=== PATIENT | male | born 1940 | race Caucasian/White ===

== ENCOUNTER 2020-07-06 16:35 | Outpatient (CLI) | payer MEDICARE, BC, OTHER, SELFPAY ==
[2020-07-06 16:49] LABS: Hemoglobin 7.7 g/dL (11.7-16.6); Mean Corpuscular HGB Conc 30.8 g/dL (30.0-36.0); Mean Corpuscular Hemoglobin 26.9 pg (28.0-34.0); Mean Corpuscular Volume 87.4 fL (80-94); Mean Platelet Volume 11.2 fL (7.4-10.4); Platelet Count 205 10^3/cmm (130-400); Red Blood Count 2.86 10^6/uL (4.1-5.3); Red Cell Distribution Width 19.4 % (12.1-15.1); White Blood Count 8.5 10^3/uL (4.0-10.0)
[2020-07-06 17:15] LABS: Alanine Aminotransferase 36 U/L (0-41); Albumin Level 3.1 g/dL (3.5-5.2); Alkaline Phosphatase 104 IU/L (40-130); Anion Gap 18.6 (5-19); Aspartate Amino Transferase 20 U/L (0-40); Carbon Dioxide 21 mmol/L (22-29); Chloride 99 mmol/L (98-107); Globulin 2.7 g/dL (1.3-4.6); Glucose 118 mg/dL (65-115); Lactate Dehydrogenase 319 U/L (135-225); Osmolality Calculated 277 mOsm/kg (285-295); Potassium 5.6 mmol/L (3.5-5.1); Sodium 133 mmol/L (136-145); Total Bilirubin 0.5 mg/dL (0.15-1.2); Total Protein 5.8 g/dL (6.6-8.7); Uric Acid 9.6 mg/dL (3.4-7.0)
[2020-07-06 17:22] LABS: Absolute Segmented Neutrophil 5.6 10/cmm (1.6-7.1); Band Neutrophils Absolute 1.5 10^3/cmm (0.0-1.2); Eosinophils 1 %; Lymphocytes 12 %; Monocytes Absolute 0.2 10^3/cmm (0.1-0.6); Segmented Neutrophils 66 %; Total Cells Counted 100 (0-100)
[2020-07-06 17:25] LABS: Absolute Neutrophil 7.1 10^3/cmm (1.4-6.5); Platelet Estimate Normal (Normal); Poikilocytosis 1+
[2020-07-06 17:43] LABS: Blood Urea Nitrogen 82 mg/dL (8-23)
== END 2020-07-06 16:36 | disposition home or self-care (01) ==
LOC: LAB 16:40
PROVIDERS: PCP Family Medicine; Visit Provider Internal Medicine Hematology & Oncology
DX: C83.38 Diffuse large B-cell lymphoma, lymph nodes of multiple sites (principal)
CPT/HCPCS: 80053; 83615; 84550; 85007; 85027

== ENCOUNTER 2020-07-08 01:10 | Emergency (ER) | payer MEDICARE, BC, OTHER, SELFPAY ==
[2020-07-08] VITALS (17 sets, daily range): BP systolic 92–140; BP diastolic 50–70; PULSE 64–139; RESP 12–30; TEMP 36.6; O2SAT 91–100
--- NOTE | 2020-07-08 01:13 | XR_ITS ---
WS: [id number] Portable AP upright chest, 07/08/2020, 0121 hours Clinical Data: sob Comparison: PA and lateral chest, 11/17/2016. Findings: No nodules, masses or effusions are seen. The heart is enlarged. The pulmonary vascularity is not increased. No pneumonia or pneumothorax is seen. There is an infusion catheter entering from t he right and ending in the superior vena cava. The aortic arch and descending aorta are tortuous. The patient has a poor inspiratory effort. Monitor leads are on the chest wall. XR/XR chest 1V portable [id number] Impression: Atherosclerosis and cardiomegaly.
--- NOTE | 2020-07-08 01:13 | ECG_ITS ---
[facility] Test Date: 2020-07-08 Pat Name: Nato Waite Department: Room: Gender: Male Obstetrician: : 1940 Requested By: Liss Wright Order Number: [id number] Jaime MD: Nuvia Jurado M.D. Measurements Intervals [place] Rate: 112 P: -13 [place]: 162 QRS: -35 QRSD: 176 T: 116 QT: 372 QTc: 510 Interpretive Statements SINUS TACHYCARDIA LEFT AXIS DEVIATION [QRS AXIS < -30] LEFT BUNDLE BRANCH BLOCK [120+ ms QRS DURATION, 80+ ms Q/S IN V1/V2, 85+ ms R IN I/aVL/V5/V6] Compared to ECG 11/17/2016 11:06:42 Left-axis deviation now present Sinus rhythm no longer present Electronically Signed On 07-08-2020 20:20:52 CDT by Nuvia Jurado M.D. [id number]
--- NOTE | 2020-07-08 01:18 | ED_ITS ---
HPI - SOB/Dyspnea General: Chief Complaint: Shortness of Breath/Dyspnea Stated Complaint: SOB Time Seen by Provider: 07/08/20 01:12 Source: patient and EMS Mode of arrival: EMS Limitations: no limitations History of Present Illness: HPI Narrative: 79-year-old male states is been having difficulty breathing throughout the day. He does have a history of congestive heart failure had increased lower extremity edema. Patient here has an audible stridor and appears anxious. Patient given terbutaline and Solu- Medrol in route with minimal relief. Patient is currently on 2 L oxygen and oxygen saturations 96%. Associated symptoms: Deny abdominal pain, chest pain, fever(s), nausea or vomiting Review of Systems Const: Denies: fever(s), chills, body aches or change in appetite Eyes: Denies: blurry vision or eye discomfort ENMT: Denies: throat pain or dental pain Card: Denies: chest pain Resp: Reports: dyspnea GI: Denies: abdominal pain, nausea, vomiting or diarrhea : Denies: dysuria Musc: Denies: neck pain or back pain Skin/Breast: Denies: rash Neuro: Denies: headache(s) Psych: Denies: depression Massimo/Lymph: Denies: easy bruising All/Imm: Denies: urticaria Physical Exam Const: COMMON NORMALS: patient oriented x3 and healthy appearing GENERAL APPEARANCE: in distress HENMT: COMMON NORMALS: normocephalic and atraumatic HEAD & SCALP: normoceph alic and atraumatic Eye: COMMON NORMALS: Equal, round and reactive pupils present and EOMs intact bilaterally PUPIL: Yes Equal, round and reactive pupils present Neck/C-Spine: COMMON NORMALS: full ROM and supple Chest: COMMONS NORMALS: normal inspection of the chest and normal palpation of entire chest wall Resp: COMMON NORMALS: No retractions and No use of accessory muscles EFFORT & INSPECTION: Yes tachypneic and Yes stridor Cardio: COMMON NORMALS: regular rate, regular rhythm and No murmurs present (Cardio) RATE: regular rate RHYTHM: regular rhythm GI: COMMON NORMALS: Normal to inspection, nondistended, normoactive bowel sounds present, Soft to palpation, non-tender and no masses PALPATION: Yes Soft to palpation Extremity: COMMON NORMALS: full ROM NARRATIVE EXTREMITY EXAM: 2+ extremity edema 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 Neuro: COMMON NORMALS: patient oriented x3, moves all extremities and no focal motor deficits Psych: COMMON NORMALS: mental status grossly normal, Normal thought process present and cooperative THOUGHT PROCESS: Normal thought process present Skin: COMMON NORMALS: no rashes or lesions noted and no wounds GENERAL SKIN EXAM: no rashes or lesions noted Procedures Intubation sedative: Etomidate Mg Given: 20 paralytic: Rocuronium Mg Given: 75 Laryngoscope: fiber optic video scope ET Tube Size: 7.5 ET Tube Uncuffed: No Tube Secured Depth (cm): 26 Tube Secured Location: teeth Tube Placement Confirmation: visualized tube passing through cords, equal breath sounds bilaterally, no breath sounds over epigastrium and confirmation by capnometry Patient Tolerated Procedure: well Intubation Complications: none Course Vital Signs: Vital signs: Vital Signs Temperature 97.8 F 07/08/20 01:27 Pulse Rate 70 07/08/20 04:19 Respiratory Rate 18 07/08/20 04:19 Blood Pressure 102/64 07/08/20 04:19 Pulse Oximetry 100 07/08/20 04:19 MDM - SOB/Dyspnea MDM Narrative: Medical decision making narrative: 0245 patient's breathing continues to worsen he has continued increased work of breathing. I did place him on BiPAP and he is having no improvement at this time. I spoke to his son and son made the decision that he wants him to be intubated. I informed him we do not have ICU beds and he would like him transferred to [facility] at is where he is received all his previous care. Will intubate patient at this time due to worsening respiratory status. I spoke to [facility] who requested COVID testing. Patient's cover testing came back negative. Will transfer there for bed availability. Patient has been stable here since being intubated. Lab Data: Labs: Lab Results 07/08/20 07/08/20 07/08/20 Range/Units 01:13 01:21 01:21 WBC 16.4 H (4.0-10.0) 10^3/ uL RBC 2.78 L (4.1-5.3) 10^6/u L Hgb 7.5 L (11.7-16.6) g/dL Hct 24.5 L (42.0-52.0) % MCV 88.1 (80-94) fL MCH 27.0 L (28.0-34.0) pg MCHC 30.6 (30.0-36.0) g/dL RDW 19.3 H (12.1-15.1) % Plt Count 265 (130-400) 10^3/c mm MPV 10.2 (7.4-10.4) fL Neut % (Auto) 74.0 % Lymph % (Auto) 15.6 % [place] % (Auto) 7.9 % Eos % (Auto) 0.2 % Baso % (Auto) 0.4 % Neut # (Auto) 12.16 H (1.8-7.7) 10^3/u L Lymph # (Auto) 2.6 (0.8-4.8) 10^3/u L [place] # (Auto) 1.3 H (0.2-0.9) 10^3/u L Eos # (Auto) 0.0 (0.0-0.8) 10^3/u L Baso # (Auto) 0.1 (0.0-0.1) 10^3/u L Nucleated RBC % (a uto) 0 % Nucleated RBCs # 0.0 /100WBC PT 14.30 (12.1-14.9) SECO NDS INR 1.07 (0.8-1.2) Specimen Type Arterial Sample Site Radial, left ABG pH 7.21 L (7.35-7.45) ABG pCO2 54.1 H (35-45) mmHg ABG pO2 126.0 H (80.0-100.0) mmH g ABG HCO3 21.4 L (22-26) mmol/L ABG Base Excess -6.3 L (-2.0-2.0) mmol/ L Nura Test Pos Hematocrit 25.5 L (42-52) % Hgb O2 Saturation 96.3 (95-100) % Carboxyhemoglobin 2.0 (0.4-20.1) %THgb Methemoglobin 1.0 (0.4-1.5) % Total Hemoglobin 8.3 L (14-18) g/dL O2 Delivery Device Nc O2 Liters/Min 4.0 % Real Estate Associate Attorney ID [place] Sodium (136-145) mmol/L Potassium (3.5-5.1) mmol/L Chloride (98-107) mmol/L Carbon Dioxide (22-29) mmol/L Anion Gap (5-19) BUN (8-23) mg/dL Creatinine (0.7-1.2) mg/dL GFR Calculation Glucose (65-115) mg/dL Calculated Osmolal ity (285-295) mOsm/k g Calcium (8.5-10.5) mg/dL Total Bilirubin (0.15-1.2) mg/dL AST (0-40) U/L ALT (0-41) U/L Alkaline Phosphata se (40-130) IU/L NT-Pro-B Natriuret Pep (0-450) pg/mL Total Protein (6.6-8.7) g/dL Albumin (3.5-5.2) g/dL Globulin (1.3-4.6) g/dL SARS-CoV-2 Ag (Rap id) (Negative) 07/08/20 07/08/20 Range/Units 01:21 03:49 WBC (4.0-10.0) 10^3/ uL RBC (4.1-5.3) 10^6/u L Hgb (11.7-16.6) g/dL Hct (42.0-52.0) % MCV (80-94) fL MCH (28.0-34.0) pg MCHC (30.0-36.0) g/dL RDW (12.1-15.1) % Plt Count (130-400) 10^3/c mm MPV (7.4-10.4) fL Neut % (Auto) % Lymph % (Auto) % [place] % (Auto) % Eos % (Auto) % Baso % (Auto) % Neut # (Auto) (1.8-7.7) 10^3/u L Lymph # (Auto) (0.8-4.8) 10^3/u L [place] # (Auto) (0.2-0.9) 10^3/u L Eos # (Auto) (0.0-0.8) 10^3/u L Baso # (Auto) (0.0-0.1) 10^3/u L Nucleated RBC % (a uto) % Nucleated RBCs # /100WBC PT (12.1-14.9) SECO NDS INR (0.8-1.2) Specimen Type Sample Site ABG pH (7.35-7.45) ABG pCO2 (35-45) mmHg ABG pO2 (80.0-100.0) mmH g ABG HCO3 (22-26) mmol/L ABG Base Excess (-2.0-2.0) mmol/ L Nura Test Hematocrit (42-52) % Hgb O2 Saturation (95-100) % Carboxyhemoglobin (0.4-20.1) %THgb Methemoglobin (0.4-1.5) % Total Hemoglobin (14-18) g/dL O2 Delivery Device O2 Liters/Min % Real Estate Associate Attorney ID Sodium 133 L (136-145) mmol/L Potassium 5.7 H (3.5-5.1) mmol/L Chloride 99 (98-107) mmol/L Carbon Dioxide 22 (22-29) mmol/L Anion Gap 17.7 (5-19) BUN 84 H* (8-23) mg/dL Creatinine 5.3 H (0.7-1.2) mg/dL GFR Calculation Not Reportable Glucose 135 H (65-115) mg/dL Calculated Osmolal ity 278 L (285-295) mOsm/k g Calcium 8.4 L (8.5-10.5) mg/dL Total Bilirubin 0.6 (0.15-1.2) mg/dL AST 16 (0-40) U/L ALT 26 (0-41) U/L Alkaline Phosphata se 118 (40-130) IU/L NT-Pro-B Natriuret Pep 1589 H (0-450) pg/mL Total Protein 6.0 L (6.6-8.7) g/dL Albumin 3.0 L (3.5-5.2) g/dL Globulin 3.0 (1.3-4.6) g/dL SARS-CoV-2 Ag (Rap id) Negative (Negative) Imaging Data^: ct neck: Attestation: I personally reviewed and interpreted this imaging study as follows: Radiologist's impression: [address] [address] [address] Scan Report Signed Patient: Nato Waite Unit #: [id number] : 1940 Age/Sex: 79 / M ADM Date: 07/08/20 Loc: ER Room/Bed: Attending Dr: Ordering Provider/Ordering MD: Liss Wright MD Date of Service: 07/08/20 Procedure(s): CT neck wo con 14349 Accession Number(s): [id number] Report Number: [id number] PROCEDURE INFORMATION: Exam: CT Neck Without Contrast Exam date and time: 07/08/2020 1:35 AM Age: 79 years old Clinical indication: Dyspnea / difficulty breathing; Additional info: SOB TECHNIQUE: Imaging protocol: Computed tomography images of the neck without contrast. Radiation optimization: All CT scans at this facility use at least one of these dose optimization techniques: automated exposure control; mA and/or kV adjustment per patient size (includes targeted exams where dose is matched to clinical indication); or iterative reconstruction. COMPARISON: No relevant prior studies available. RADIATION DOSE METRICS: Total DLP (mGy-cm): 792.51 FINDINGS: Tubes, catheters and devices: Right subclavian central line is partially imaged. Sinuses: There are mucous retention cysts in the maxillary sinuses bilaterally. Nasopharynx: The nasopharynx is unremarkable. There is no significant pharyngeal tonsillar enlargement. Oropharynx: The oropharynx is unremarkable. There is no significant palatine tonsillar enlargement. Hypopharynx: The hypopharynx is unremarkable. There is no significant lingual tonsillar enlargement. Larynx: The larynx and epiglottis are normal. Retropharyngeal space: There is no fluid or edema in the retropharyngeal space. Submandibular/Parotid glands: The submandibular glands are normal. The parotid glands are normal. Thyroid: The thyroid gland is unremarkable. Lymph nodes: There is no cervical or supraclavicular lymphadenopathy. Trachea: The visible portion of the trachea is normal. Lungs: There is a 10 mm subpleural nodule in the left lung apex. Lung apices are otherwise clear. Bones/joints: Marked diffuse cervical degenerative disease with moderate to severe spinal canal stenosis from C2 through C5 due to hypertrophy and calcification of the posterior longitudinal ligament. Vasculature: There is mild atherosclerotic disease at the left carotid bulb. Soft tissues: There is a 3.6 cm subdermal paramidline cyst in the posterior subcutaneous fat in the upper neck. Musculature in the neck is unremarkable. CT/CT neck wo con [id number] IMPRESSION: 1. No acute findings. No airway compromise. 2. 10 mm left apical subpleural pulmonary nodule. For both low risk and high risk patients, consider CT at 3 months, PET/CT or biopsy. (rufus Whatley al., Fleischner Society, 2017) 3. Incidental findings above. EKG Data^: EKG 1: Attestation: I personally reviewed and interpreted this EKG as follows: EKG Interpretation Date: 07/08/20 EKG interpretation time: Interpretation: Sinus tachycardia left bundle branch block heart rate [address] or T wave abnormality Critical Care Time Critical Care Time: Critical Care Time: Yes Total Critical Care Time: 35 Attestation: This case had a high probability of a clinically significant, sudden, or life threatening deterioration of this patient's condition which required my full and direct attention, intervention and personal management. Discharge Plan Discharge Patient Disposition: Xfer Other Clinical Impression: Congestive heart failure Qualifiers: Heart failure type: unspecified Heart failure chronicity: acute on chronic Qualified Code(s): I50.9 - Heart failure, unspecified Respiratory failure Qualifiers: Chronicity: acute Respiratory failure complication: hypoxia and hypercapnia Qualified Code(s): J96.01 - Acute respiratory failure with hypoxia Condition: Stable Referrals: Portillo Seth MD [Primary Care Provider] - Coding Level of Care Code ED Consulting Project Director for g Fwd Exam Comprehensive
[2020-07-08] MEDS: racepinephrine 0.5 mL Neb INHALATION ×2 (01:19→02:17)
--- NOTE | 2020-07-08 01:24 | CTR_ITS ---
PROCEDURE INFORMATION: Exam: CT Neck Without Contrast Exam date and time: 07/08/2020 1:35 AM Age: 79 years old Clinical indication: Dyspnea / difficulty breathing; Additional info: SOB TECHNIQUE: Imaging protocol: Computed tomography images of the neck without contrast. Radiation optimization: All CT scans at this facility use at least one of these dose optimization techniques: automated exposure control; mA and/or kV adjustment per patient size (includes targeted exams where dose is matched to clinical indication); or iterative reconstruction. COMPARISON: No relevant prior studies available. RADIATION DOSE METRICS: Total DLP (mGy-cm): 792.51 FINDINGS: Tubes, catheters and devices: Right subclavian central line is partially imaged. Sinuses: There are mucous retention cysts in the maxillary sinuses bilaterally. Nasopharynx: The nasopharynx is unremarkable. There is no significant pharyngeal tonsillar enlargement. Oropharynx: The oropharynx is unremarkable. There is no significant palatine tonsillar enlargement. Hypopharynx: The hypopharynx is unremarkable. There is no significant lingual tonsillar enlargement. Larynx: The larynx and epiglottis are normal. Retropharyngeal space: There is no fluid or edema in the retropharyngeal space. Submandibular/Parotid glands: The submandibular glands are normal. The parotid glands are normal. Thyroid: The thyroid gland is unremarkable. Lymph nodes: There is no cervical or supraclavicular lymphadenopathy. Trachea: The visible portion of the trachea is normal. Lungs: There is a 10 mm subpleural nodule in the left lung apex. Lung apices are otherwise clear. Bones/joints: Marked diffuse cervical degenerative disease with moderate to severe spinal canal stenosis from C2 through C5 due to hypertrophy and calcification of the posterior longitudinal ligament. Vasculature: There is mild atherosclerotic disease at the left carotid bulb. Soft tissues: There is a 3.6 cm subdermal paramidline cyst in the posterior subcutaneous fat in the upper neck. Musculature in the neck is unremarkable. CT/CT neck wo con [id number] IMPRESSION: 1. No acute findings. No airway compromise. 2. 10 mm left apical subpleural pulmonary nodule. For both low risk and high risk patients, consider CT at 3 months, PET/CT or biopsy. (Chacorta et al., Fleischner Society, 2017) 3. Incidental findings above. Radiation Dose CTDIVOL = (mGy): DLP = 792.51 (mGy-cm)
[2020-07-08 01:27] LABS: ABG PCO2 54.1 mmHg (35-45); ABG PH Result 7.21 (7.35-7.45); Arterial Blood Gas Hematocrit 25.5 % (42-52); Base Excess ABG -6.3 mmol/L (-2.0-2.0); Blood Gas Allen Test Pos; Blood Gas Operator Identificat MONRO; Blood Gas Sample Site Radial, left; Blood Gas Sample Type Arterial; HCO3 ABG 21.4 mmol/L (22-26); HGB O2 Sat 96.3 % (95-100); Total Hemoglobin 8.3 g/dL (14-18)
[2020-07-08 01:28] LABS: Oxygen Device NC
[2020-07-08 01:29] LABS: Basophils # 0.1 10^3/uL (0.0-0.1); Basophils % 0.4 %; Eosinophils % 0.2 %; Hematocrit 24.5 % (42.0-52.0); Hemoglobin 7.5 g/dL (11.7-16.6); Lymphocytes # 2.6 10^3/uL (0.8-4.8); Lymphocytes % 15.6 %; Mean Corpuscular HGB Conc 30.6 g/dL (30.0-36.0); Mean Corpuscular Volume 88.1 fL (80-94); Mean Platelet Volume 10.2 fL (7.4-10.4); Monocytes # 1.3 10^3/uL (0.2-0.9); Monocytes % 7.9 %; Neutrophils # 12.16 10^3/uL (1.8-7.7); Nucleated Red Blood Cells % 0 %; Platelet Count 265 10^3/cmm (130-400); Red Blood Count 2.78 10^6/uL (4.1-5.3); Red Cell Distribution Width 19.3 % (12.1-15.1); White Blood Count 16.4 10^3/uL (4.0-10.0)
[2020-07-08] MEDS: ipratropium-albuterol 3 mL Neb INHALATION (01:32)
[2020-07-08 01:40] LABS: INR 1.07 (0.8-1.2)
[2020-07-08 01:56] LABS: Alanine Aminotransferase 26 U/L (0-41); Alkaline Phosphatase 118 IU/L (40-130); Anion Gap 17.7 (5-19); Aspartate Amino Transferase 16 U/L (0-40); Calcium 8.4 mg/dL (8.5-10.5); Carbon Dioxide 22 mmol/L (22-29); Chloride 99 mmol/L (98-107); Glucose 135 mg/dL (65-115); NT Pro B Type Natriuretic Pept 1589 pg/mL (0-450); Osmolality Calculated 278 mOsm/kg (285-295); Potassium 5.7 mmol/L (3.5-5.1); Sodium 133 mmol/L (136-145); Total Bilirubin 0.6 mg/dL (0.15-1.2)
[2020-07-08] MEDS: LORazepam 2 mg/mL INJ 1 mL 0.5 MG IVP ×2 (01:58→02:44)
--- NOTE | 2020-07-08 01:58 | PC.NURSE ---
patient has 4+ edema to LEs, noted weeping from legs
[2020-07-08 02:01] LABS: Blood Urea Nitrogen 84 mg/dL (8-23)
[2020-07-08] MEDS: dexamethasone 10 mg/mL INJ IVP (02:09)
[2020-07-08] MEDS: FUROsemide 10 mg/mL SDV 4mL 40 MG IVP (02:44)
--- NOTE | 2020-07-08 02:57 | PC.NURSE ---
patient placed on BiPap, This RN in room to keep patient from pulling mask off, notified
[2020-07-08] MEDS: rocuronium 10 mg/mL INJ 5mL 100 MG (03:09)
--- NOTE | 2020-07-08 03:14 | XR_ITS ---
WS: [id number] Portable AP supine chest, 07/08/2020, 0322 hours Clinical Data: post intubation Comparison: Portable chest, 07/08/2020 Findings: An endotracheal tube has been inserted and ends above the [place]. The oral gastric tube in size in the region the stomach. No r heart and lung changes are seen. XR/XR chest 1V portable [id number] Impression: Satisfactory position of endotracheal tube and oral gastric tube.
[2020-07-08] MEDS: propofol 1,000 MG/100 ML INJ 7.3 MG IV (03:37)
[2020-07-08] MEDS: cefTRIAXone 1,000 MG in sodium chloride 0.9% (plus) 50 ML 100 MG IV (03:50)
[2020-07-08] MEDS: azithromycin 500 MG in sodium chloride 0.9% 250 ML 250 MG IV (03:50)
--- NOTE | 2020-07-08 03:53 | PC.NURSE ---
patient was becoming more obtunded, MD notified, decision to intubate, medications given per protocol and MD order, ET tube 7.5 at 26 teeth, 16 Fr NG tube placed, 18Fr Mccormick placed, BCs and antibiotics started, awaiting results and transfer order, VS stable will continue to monitor
[2020-07-08 04:27] LABS: SARS Covid-2 Antigen Negative (Negative)
[2020-07-08 04:40] LABS: ABG PCO2 31.6 mmHg (35-45); ABG PH Result 7.37 (7.35-7.45); Arterial Blood Gas Hematocrit 21.2 % (42-52); Base Excess ABG -6.4 mmol/L (-2.0-2.0); Blood Gas Allen Test Pos; Blood Gas Operator Identificat MONRO; Blood Gas Sample Site Radial, left; Blood Gas Sample Type Arterial; HCO3 ABG 18.2 mmol/L (22-26); Oxygen Device VENT
== END 2020-07-08 05:34 | disposition other institution (70) ==
PROVIDERS: Emergency Provider Emergency Medicine; PCP Family Medicine
DX: I11.0 Hypertensive heart disease with heart failure (principal); I50.9 Heart failure, unspecified; J96.02 Acute respiratory failure with hypercapnia; J96.01 Acute respiratory failure with hypoxia; I70.90 Unspecified atherosclerosis
CPT/HCPCS: 12345; 31500; 36600; 70490; 71045; 80053; 82803; 82805; 83880; 85025; 85610; 87040; 87426; 93005; 94640; 94660; 94799; 96365; 96366; 96367; 96368; 99283; 99291; J0456; J0696; J1100; J1940; J2060; J2704; J3490; J7050; J7611